=== PATIENT | male | born 1980 | race Caucasian/White ===

== ENCOUNTER 2017-07-27 20:00 | Emergency (ER) | payer MEDICAID ==
[~2017-07-27] VITALS: Ht 177.8 cm; Wt 100.0 kg
[2017-07-27] MEDS ORDERED: ONDANSETRON ODT 4 MG PO ONE (21:30)
[2017-07-27 21:50] VITALS: BP 109/69
== END 2017-07-27 21:53 | disposition home or self-care (01) ==
LOC: ED 21:51
DX: F10.220 Alcohol dependence with intoxication, uncomplicated (principal); I10 Essential (primary) hypertension; R45.851 Suicidal ideations; Y90.9 Presence of alcohol in blood, level not specified
CPT/HCPCS: 99283; Q0162; 99282

== ENCOUNTER 2017-09-16 13:01 | Emergency (ER) | payer MEDICAID ==
[~2017-09-16] VITALS: Ht 188 cm; Wt 101.1 kg
[2017-09-16] MEDS ORDERED: MORPHINE SULFATE 4 MG/ML, 1ML ONE ×2 (16:22→17:40)
[2017-09-16] MEDS: MORPHINE SULFATE 4 MG/ML, 1ML IVPush PRN ×2 (16:30→17:56)
[2017-09-16 16:33] LABS: BASOPHILS # (AUTO) 0.09 x10^3/uL (0-0.1); BASOPHILS % (AUTO) 1 % (0-1); EOSINOPHILS # (AUTO) 0.09 x10^3/uL (0-0.4); EOSINOPHILS % (AUTO) 1 % (1-7); LYMPHOCYTES # (AUTO) 2.38 x10^3/uL (1-3.4); LYMPHOCYTES % (AUTO) 16 % (22-44); MD NO; MEAN CORPUSCULAR HEMOGLOBIN 33.4 pg (27.5-34.5); MEAN CORPUSCULAR HGB CONC 33.8 g/dL (33.2-36.2); MEAN CORPUSCULAR VOLUME 98.8 fL (81-97); MONOCYTES # (AUTO) 0.46 x10^3/uL (0.2-0.8); MONOCYTES % (AUTO) 3 % (2-9); NEUTROPHILS # (AUTO) 11.79 x10^3/uL (1.8-6.8); NEUTROPHILS % (AUTO) 80 % (42-75); PLATELET COUNT 189 x10^3/uL (130-400); RED BLOOD COUNT 5.03 x10^6/uL (4.38-5.82); RED CELL DISTRIBUTION WIDTH 13.2 % (9.4-14.8)
[2017-09-16 16:41] LABS: INTERNATIONAL NORMALIZED RATIO 0.98 (0.93-1.1); PROTHROMBIN TIME 10.2 Seconds (9.6-11.5)
[2017-09-16 16:44] LABS: ALBUMIN 3.5 g/dL (3.4-5.0); ANION GAP 9 mmol/L (5-15); CHLORIDE 114 mmol/L (98-107)
[2017-09-16 16:47] LABS: ALANINE AMINOTRANSFERASE 44 U/L (12-78); ALKALINE PHOSPHATASE 109 U/L (45-117); BILIRUBIN,TOTAL 0.6 mg/dL (0.2-1.0); CREATININE 1.36 mg/dL (0.7-1.3); TOTAL PROTEIN 6.6 g/dL (6.4-8.2)
[2017-09-16] MEDS ORDERED: SODIUM CHLORIDE 0.9% 1,000ML IVBOLUS ONE (17:30)
[2017-09-16] MEDS ORDERED: THIAMINE 100 MG/ML, 2ML IM ONE (17:30)
[2017-09-16] MEDS ORDERED: PROPARACAINE OPHTH 0.5%, 15ML ONE (17:39)
[2017-09-16] MEDS ORDERED: THIAMINE 100 MG/ML, 2ML ONE (17:40)
[2017-09-16 18:54] VITALS: BP 145/98
== END 2017-09-16 18:56 | disposition home or self-care (01) ==
LOC: ED 18:31
DX: S02.31XA Fracture of orbital floor, right side, initial encounter for closed fracture (principal); D72.829 Elevated white blood cell count, unspecified; K70.9 Alcoholic liver disease, unspecified; F17.200 Nicotine dependence, unspecified, uncomplicated; I10 Essential (primary) hypertension; Y04.8XXA Assault by other bodily force, initial encounter; Y93.89 Activity, other specified; Y92.89 Other specified places as the place of occurrence of the external cause; Y99.8 Other external cause status
CPT/HCPCS: 36415; 70450; 70486; 72125; 80053; 85025; 85610; 85730; 93005; 96372; 96374; 96376; 99285; J3411; J7030

== ENCOUNTER 2017-09-17 12:37 | Emergency (ER) | payer MEDICAID ==
[~2017-09-17] VITALS: Ht 188 cm; Wt 99.8 kg
[2017-09-17 12:41] VITALS: BP 159/98
[2017-09-17] MEDS ORDERED: OXYcodone/APAP 5/325MG TABLET ONE (13:59)
[2017-09-17] MEDS ORDERED: OXYcodone/APAP 5/325MG TABLET PO ONE (14:00)
== END 2017-09-17 14:28 | disposition home or self-care (01) ==
LOC: ED 14:22
DX: Z72.9 Problem related to lifestyle, unspecified (principal); I10 Essential (primary) hypertension
CPT/HCPCS: 99282

== ENCOUNTER 2017-12-03 20:23 | Emergency (ER) | payer MEDICAID ==
[~2017-12-03] VITALS: Ht 188 cm; Wt 110.0 kg
[2017-12-03 20:48] LABS: BASOPHILS # (AUTO) 0.06 x10^3/uL (0-0.1); BASOPHILS % (AUTO) 1 % (0-1); EOSINOPHILS # (AUTO) 0.37 x10^3/uL (0-0.4); EOSINOPHILS % (AUTO) 3 % (1-7); LYMPHOCYTES # (AUTO) 2.28 x10^3/uL (1-3.4); LYMPHOCYTES % (AUTO) 17 % (22-44); MD NO; MEAN CORPUSCULAR HEMOGLOBIN 31.4 pg (27.5-34.5); MEAN CORPUSCULAR HGB CONC 33.9 g/dL (33.2-36.2); MEAN CORPUSCULAR VOLUME 92.8 fL (81-97); MEAN PLATELET VOLUME 9.2 fL (7.4-10.4); MONOCYTES # (AUTO) 1.04 x10^3/uL (0.2-0.8); MONOCYTES % (AUTO) 8 % (2-9); NEUTROPHILS # (AUTO) 9.77 x10^3/uL (1.8-6.8); NEUTROPHILS % (AUTO) 72 % (42-75); PLATELET COUNT 184 x10^3/uL (130-400); RED BLOOD COUNT 5.31 x10^6/uL (4.38-5.82)
[2017-12-03 20:59] LABS: ALANINE AMINOTRANSFERASE 50 U/L (12-78); ALBUMIN 3.5 g/dL (3.4-5.0); ANION GAP 8 mmol/L (5-15); CALCIUM 8.6 mg/dL (8.5-10.1); CHLORIDE 109 mmol/L (98-107); CREATININE 1.87 mg/dL (0.7-1.3)
[2017-12-03 21:02] LABS: ALKALINE PHOSPHATASE 112 U/L (45-117); BILIRUBIN,TOTAL 0.3 mg/dL (0.2-1.0); TOTAL PROTEIN 6.9 g/dL (6.4-8.2)
[2017-12-03 21:14] LABS: MICROSCOPIC AUTO
[2017-12-03] MEDS ORDERED: MORPHINE SULFATE 4 MG/ML, 1ML ONE ×2 (21:14→22:01)
[2017-12-03] MEDS ORDERED: ONDANSETRON 2MG/ML, 2ML ONE (21:14)
[2017-12-03] MEDS: MORPHINE SULFATE 4 MG/ML, 1ML IVPush PRN ×2 (21:15→22:14)
[2017-12-03 21:17] LABS: CULTURE INDICATED? NO
[2017-12-03] MEDS ORDERED: ONDANSETRON 2MG/ML, 2ML IVPush ONE (21:30)
[2017-12-03] MEDS ORDERED: SODIUM CHLORIDE 0.9% 1,000ML IVBOLUS ONE (21:30)
[2017-12-03] MEDS ORDERED: SODIUM CHLORIDE FLUSH 10ML SYR IVF ONE (21:30)
[2017-12-03] MEDS ORDERED: HYDR25TA11 PO (21:47)
[2017-12-03] MEDS ORDERED: FLUO20CA8 PO (21:47)
[2017-12-03] MEDS ORDERED: FEBU40TA PO (21:47)
[2017-12-03] MEDS ORDERED: OLAN15TA9 PO (21:47)
[2017-12-03] MEDS ORDERED: UMEC62.5 INH (21:47)
[2017-12-03] MEDS ORDERED: NICO-487 TD (21:47)
[2017-12-03] MEDS ORDERED: THIA100T67 PO (21:47)
[2017-12-03] MEDS ORDERED: ATEN25TA PO (21:47)
[2017-12-03] MEDS ORDERED: CRANBERRY EXTRACT (21:47)
[2017-12-03] MEDS ORDERED: CYCLOBENZAPRINE 10 MG TABLET ONE (22:17)
[2017-12-03] MEDS ORDERED: CYCLOBENZAPRINE 10 MG TABLET PO ONE (22:30)
[2017-12-03 22:41] VITALS: BP 124/68
== END 2017-12-03 22:44 | disposition home or self-care (01) ==
LOC: ED 21:28
DX: N18.9 Chronic kidney disease, unspecified (principal); I12.9 Hypertensive chronic kidney disease with stage 1 through stage 4 chronic kidney disease, or unspecified chronic kidney disease
CPT/HCPCS: 36415; 74176; 80053; 81001; 83690; 85025; 96374; 96375; 96376; 99285; J2405; J7030

== ENCOUNTER 2017-12-04 08:33 | Emergency (ER) | payer MEDICAID ==
[~2017-12-04] VITALS: Ht 188 cm; Wt 112.0 kg
[~2017-12-04 08:33] MED LIST: ATEN25TA PO; CRANBERRY EXTRACT; FEBU40TA PO; FLUO20CA8 PO; HYDR25TA11 PO; NICO-487 TD; OLAN15TA9 PO; THIA100T67 PO; UMEC62.5 INH
[2017-12-04] MEDS ORDERED: ONDANSETRON 2MG/ML, 2ML ONE (09:26)
[2017-12-04] MEDS ORDERED: HYDROmorphone 2 MG/ML, 1ML ONE ×2 (09:26→11:13)
[2017-12-04] MEDS ORDERED: ONDANSETRON 2MG/ML, 2ML IVPush ONE (09:30)
[2017-12-04] MEDS ORDERED: SODIUM CHLORIDE FLUSH 10ML SYR IVF ONE (09:30)
[2017-12-04] MEDS: HYDROmorphone 2 MG/ML, 1ML IVPush PRN ×2 (09:40→11:15)
[2017-12-04 09:45] LABS: MICROSCOPIC AUTO
[2017-12-04 09:50] LABS: BASOPHILS # (AUTO) 0.17 x10^3/uL (0-0.1); BASOPHILS % (AUTO) 2 % (0-1); EOSINOPHILS # (AUTO) 0.19 x10^3/uL (0-0.4); EOSINOPHILS % (AUTO) 2 % (1-7); LYMPHOCYTES # (AUTO) 1.78 x10^3/uL (1-3.4); LYMPHOCYTES % (AUTO) 16 % (22-44); MD NO; MEAN CORPUSCULAR HEMOGLOBIN 31.3 pg (27.5-34.5); MEAN CORPUSCULAR HGB CONC 33.8 g/dL (33.2-36.2); MEAN CORPUSCULAR VOLUME 92.6 fL (81-97); MEAN PLATELET VOLUME 9.6 fL (7.4-10.4); MONOCYTES # (AUTO) 0.74 x10^3/uL (0.2-0.8); MONOCYTES % (AUTO) 7 % (2-9); NEUTROPHILS # (AUTO) 8.27 x10^3/uL (1.8-6.8); NEUTROPHILS % (AUTO) 74 % (42-75); PLATELET COUNT 174 x10^3/uL (130-400); RED BLOOD COUNT 5.21 x10^6/uL (4.38-5.82); RED CELL DISTRIBUTION WIDTH 13.1 % (9.4-14.8)
[2017-12-04 09:58] LABS: ALANINE AMINOTRANSFERASE 47 U/L (12-78); ALBUMIN 3.5 g/dL (3.4-5.0); ANION GAP 7 mmol/L (5-15); CALCIUM 8.2 mg/dL (8.5-10.1); CHLORIDE 110 mmol/L (98-107); CREATININE 1.76 mg/dL (0.7-1.3)
[2017-12-04 10:01] LABS: ALKALINE PHOSPHATASE 113 U/L (45-117); BILIRUBIN,TOTAL 0.3 mg/dL (0.2-1.0)
[2017-12-04 10:02] LABS: CULTURE INDICATED? NO
[2017-12-04 11:12] VITALS: BP 101/61
== END 2017-12-04 12:00 | disposition home or self-care (01) ==
LOC: ED 09:18
DX: R10.11 Right upper quadrant pain (principal); R07.89 Other chest pain; E78.5 Hyperlipidemia, unspecified; I12.9 Hypertensive chronic kidney disease with stage 1 through stage 4 chronic kidney disease, or unspecified chronic kidney disease; N18.3 Chronic kidney disease, stage 3 (moderate); F17.200 Nicotine dependence, unspecified, uncomplicated
CPT/HCPCS: 36415; 71046; 76700; 80053; 81001; 83690; 85025; 96374; 96375; 96376; 99285; J1170; J2405